=== PATIENT | female | born 1975 ===

== ENCOUNTER 2024-06-25 11:45 | Inpatient (IN) | payer OTHER ==
[~2024-06-25] VITALS: Ht 30.5 cm; Wt 88.5 kg
[2024-06-25] MEDS ORDERED: [UNRECOGNIZED DRUG - OTHER] (12:44)
[2024-06-25 15:42] LABS: RH POSITIVE
[2024-07-01] MEDS ORDERED: CIPROFLOXACIN IN 5 % DEXTROSE 400 MG/200 ML PIGGYBAG IV ONE ×2 (09:25→17:22)
[2024-07-01] MEDS ORDERED: hydrALAZINE HCL 20 MG VIAL ONE (10:07)
[2024-07-01] MEDS ORDERED: HEMOSTATIC MATRIX 1 KIT KIT TOP ONE (11:59)
[2024-07-01] MEDS ORDERED: SUGAMMADEX SODIUM 200 MG/2 ML VIAL IV ONE (12:43)
[2024-07-01] MEDS ORDERED: MORPHINE SULFATE 4 MG/ML VIAL IV ONE ×2 (13:55→14:55)
[2024-07-01] MEDS ORDERED: MORPHINE SULFATE 2 MG/ML CARTRIDGE IV PRN (14:00)
[2024-07-01] MEDS ORDERED: ONDANSETRON HCL 2 MG/ML VIAL IV PRN (14:00)
[2024-07-01] MEDS ORDERED: RINGERS SOLUTION,LACTATED 1,000 ML IV SCH (14:15)
[2024-07-01] MEDS ORDERED: ENALAPRILAT DIHYDRATE 1.25 MG/ML VIAL IV ONE (14:52)
[2024-07-01] MEDS ORDERED: ENALAPRILAT DIHYDRATE 2.5 MG/2 ML VIAL IV ONE (14:55)
[2024-07-01] MEDS ORDERED: ENOXAPARIN SODIUM 40 MG/0.4 ML SYRINGE SUBCUTANEO SCH (17:00)
[2024-07-01] MEDS ORDERED: CIPROFLOXACIN IN 5 % DEXTROSE 400 MG/200 ML PIGGYBAG IV SCH (17:00)
[2024-07-01] MEDS ORDERED: MORPHINE SULFATE 2 MG/ML CARTRIDGE IV ONE (17:20)
[2024-07-01] MEDS ORDERED: KETOROLAC TROMETHAMINE 30 MG VIAL IV SCH (21:00)
[2024-07-01 21:52] VITALS: BP 121/82; O2SAT 99
[2024-07-02 01:01] VITALS: BP 116/76; O2SAT 96
[2024-07-02 07:02] LABS: HEMOGLOBIN 10.5 g/dL (12.0-15.00); MEAN CELL VOLUME 78.8 fL (80.00-100.00); MEAN CORPUSCULAR HEMOGLOBIN 25.8 pg (27.00-32.0); MEAN CORPUSCULAR HGB CONC 32.8 g/dl (32.0-36.0); PLATELET COUNT 291 K/uL (150-450); RED BLOOD COUNT 4.06 M/uL (4.00-6.00); RED CELL DISTRIBUTION WIDTH 22.6 % (11.5-14.5)
[2024-07-02 08:00] VITALS: BP 121/84; O2SAT 95
[2024-07-02] MEDS ORDERED: ACETAMINOPHEN WITH CODEINE 1 UDTAB TABLET PO PRN (08:00)
[2024-07-02] MEDS ORDERED: PATIENTS OWN MEDICATION (MEDICAMENTO EN PISO) OP SCH (09:00)
[2024-07-02] MEDS ORDERED: SOD FERRIC GLUC COMPLX/SUCROSE 62.5 MG/5 ML AMPUL IV NR ×2 (09:34→10:00)
[2024-07-02] MEDS ORDERED: DOCUSATE SODIUM 100MG CAP PO NR ×2 (09:34→10:00)
[2024-07-02] MEDS ORDERED: SUGAMMADEX SODIUM 200 MG/2 ML VIAL IV ONE (14:45)
[2024-07-02 16:00] VITALS: BP 133/91; O2SAT 99
[2024-07-02] MEDS ORDERED: DOCUSATE SODIUM 100MG CAP PO SCH (17:00)
[2024-07-03 01:29] VITALS: BP 116/81; O2SAT 99
[2024-07-03 08:00] VITALS: BP 133/87; O2SAT 99
[2024-07-03] MEDS ORDERED: SOD FERRIC GLUC COMPLX/SUCROSE 62.5 MG/5 ML AMPUL IV SCH (09:00)
== END 2024-07-04 07:40 | disposition home or self-care (01) | DRG 743 ==
LOC: O/R 07-01 06:34 → SURH 07-01 09:30
PROVIDERS: ADMIT Obstetrics & Gynecology; ATTEND Obstetrics & Gynecology
PROC: 0UT70ZZ Resection of Bilateral Fallopian Tubes, Open Approach (ICD-10-PCS; 2024-07-01)
PROC: 0DNW0ZZ Release Peritoneum, Open Approach (ICD-10-PCS; 2024-07-01)
PROC: 0UT90ZL Resection of Uterus, Supracervical, Open Approach (ICD-10-PCS; principal; 2024-07-01 09:30)
DX: D25.1 Intramural leiomyoma of uterus (principal); D25.2 Subserosal leiomyoma of uterus